=== PATIENT | male | born 1935 | race Caucasian/White ===

== ENCOUNTER → 2016-10-12 | Outpatient (CLI) | payer MEDICARE ==
[~2016-10-12] MED LIST: ANORO ELLIPTA 62.1 - IH; ANTIVERT-DPS25 MG PO; ASCORBIC ACID500 MG PO; BENADRYL-DPS25 MG PO; COMPAZINE DPS5 MG PO; COZAAR DPS50 MG PO; DULERA 100/58.8 GM IH; DUONEB DPS3 ML IH; ELIQUIS2.5 MG PO; FEOSOL-DPS325 MG PO; LEVAQUIN500 MG PO; LEXAPRO DPS10 MG PO; LEXAPRO10 MG PO; LIDODERM PATC1 PATCH TP; LOVENOX40 MG/0.4 SQ; MAALOX DPS30 ML PO; MILK OF MAGNESI10 ML PO; MIRALAX17 GM PO; MUCINEX600 MG PO; MUCOMYST 10% DPS4 ML IH; NITROSTAT0.4 MG SL; OXY IR DPS5 MG PO; PEPCID DPS20 MG PO; PIPERACILLIN IV; PROAIR IH; PROSCAR DPS5 MG PO; PROSCAR5 MG PO; PROVENTIL HFA6.7 GM IH; SENOKOT S1 TAB PO; SOLU-MEDRO40 MG/1 ML IV; SURFAK DPS240 MG PO; SYMBICORT80 MCG/6.9 IH; TAZOBACTAM IV; THERAPEUTIC MUL1 TAB PO; TYLENOL DP650 MG/20. PO; TYLENOL DPS325 MG PO; TYLENOL-DPS650 MG PR; TYLENOL325 MG PO; ULTRAM DPS50 MG PO; VITAMIN D1000 UNI1 PO
== END | disposition home or self-care (01) ==
LOC: PTH.S 10-05 13:00 → RAD.S 10-05 13:30 → PTH.S 09:15
DX: C34.90 Malignant neoplasm of unspecified part of unspecified bronchus or lung (principal); I71.4 Abdominal aortic aneurysm, without rupture; R93.2 Abnormal findings on diagnostic imaging of liver and biliary tract; N32.89 Other specified disorders of bladder; Z98.890 Other specified postprocedural states